=== PATIENT | male | born 1970 | race Caucasian/White ===

== ENCOUNTER 2019-01-30 12:05 | Emergency (ER) | payer MEDICAID ==
[~2019-01-30] VITALS: Ht 170.2 cm; Wt 61.2 kg
--- NOTE | 2019-01-30 14:11 | NUR ---
Patient discharged to home in stable conditon. Written and verbal after care instructions given. Patient verbalizes understanding of instructions.
== END 2019-01-30 14:13 | disposition home or self-care (01) ==
LOC: ER 12:09
DX: L03.113 Cellulitis of right upper limb (principal); I80.8 Phlebitis and thrombophlebitis of other sites; F17.200 Nicotine dependence, unspecified, uncomplicated
CPT/HCPCS: A4663

== ENCOUNTER 2020-01-28 18:36 | Emergency (ER) | payer MEDICAID ==
[~2020-01-28] VITALS: Ht 170.2 cm; Wt 61.2 kg
--- NOTE | 2020-01-28 18:48 | NUR ---
PT IS IN ROOM #2B. DR NGUYEN EVALUATED THE PT.
[2020-01-28] MEDS ORDERED: VANCOMYCIN IV 200 ML ONE (19:10)
[2020-01-28] MEDS ORDERED: CEFTRIAXONE /D5W 50ML IVPB **ER PYXIS IV ONE (19:11)
--- NOTE | 2020-01-28 19:18 | NUR ---
Called radiology to inform them of the [facility] order.
[2020-01-28] MEDS: VANCOMYCIN IV 1,000 MG in IV DEXTROSE 5% 250 ML IV ONE (19:45)
[2020-01-28 19:46] LABS: BASOPHILS % (AUTO) 0.2 % (0.0-2.0); CREATININE 0.9 mg/dL (0.6-1.3); EOSINOPHILS # (AUTO) 0.2 K/uL (0.0-0.7); EOSINOPHILS % (AUTO) 1.7 % (0.0-7.0); HEMATOCRIT 33.8 % (36.7-47.1); HEMOGLOBIN 11.1 g/dL (12.5-16.3); LYMPHOCYTES # (AUTO) 2.6 K/uL (20.0-40.0); LYMPHOCYTES % (AUTO) 19.8 % (20.5-51.5); MEAN CORPUSCULAR HEMOGLOBIN 27.3 uug (23.8-33.4); MEAN CORPUSCULAR HGB CONC 33 g/dL (32.5-36.3); MEAN CORPUSCULAR VOLUME 83.3 fL (73.0-96.2); MONOCYTES # (AUTO) 1.2 K/uL (2.0-10.0); MONOCYTES % (AUTO) 8.8 % (0.0-11.0); NEUTROPHILS # (AUTO) 9.2 K/uL (1.8-8.9); NEUTROPHILS % (AUTO) 69.5 % (38.5-71.5); PLATELET COUNT (AUTO) 407 K/uL (152-348); POTASSIUM 4.4 mmol/L (3.5-5.1); RED BLOOD CELL COUNT(AUTO) 4.06 MIL/uL (4.06-5.63); WHITE BLOOD COUNT (AUTO) 13.3 K/uL (3.6-10.2)
--- NOTE | 2020-01-28 19:47 | NUR ---
22g IV placed in left forearm, IV Vanco running at this time
[2020-01-28] MEDS: MUPIROCIN 2% OINT 22 GM TUBE TP ONE (19:50)
--- NOTE | 2020-01-28 19:51 | NUR ---
patient having doppler of right arm at this time
[2020-01-28 19:52] LABS: BILIRUBIN,DIRECT 0.1 mg/dL (0.0-0.2); BILIRUBIN,TOTAL 0.2 mg/dL (0.2-1.0); TOTAL PROTEIN, SERUM 7.9 g/dL (6.4-8.2)
[2020-01-28] MEDS ORDERED: MUPIROCIN 2% OINT 22 GM TUBE ONE (19:52)
[2020-01-28] MEDS: CEFTRIAXONE 1 G in IV DEXTROSE 5% 50 ML IV ONE (20:15)
--- NOTE | 2020-01-28 20:15 | NUR ---
Right Forearm wound dressing done at this time
--- NOTE | 2020-01-28 21:36 | NUR ---
Patient given written and verbal discharge instructions. Patient verbalizes understanding of instructions. Patient is ambulatory with steady gait. Refuses offer of custodial placement. Patient given list of available shelters in surrounding area. IV removed. Catheter intact and site benign. Pressure and 4x4 gauze applied to site. No bleeding noted. Patient ambulated out of ER with steady gait, no complaints of pain, no signs of distress noted.
[2020-01-28 22:16] VITALS: BP 135/80
== END 2020-01-28 21:40 | disposition home or self-care (01) ==
LOC: ER 18:39
DX: L03.113 Cellulitis of right upper limb (principal); I80.8 Phlebitis and thrombophlebitis of other sites; L98.491 Non-pressure chronic ulcer of skin of other sites limited to breakdown of skin; S51.831S Puncture wound without foreign body of right forearm, sequela; W26.8XXS Contact with other sharp object(s), not elsewhere classified, sequela; F11.10 Opioid abuse, uncomplicated
CPT/HCPCS: 36415; 73090; 80048; 80076; 85025; 93971; 96365; 96367; 99284; J0696; J3370; A4663

== ENCOUNTER 2022-07-12 20:42 | Inpatient (IN) | END 2022-07-15 18:25 | disposition left against medical advice (07) | DRG 720 | DX: A41.9 Sepsis, unspecified organism (principal); J96.01 Acute respiratory failure with hypoxia; G92.8 Other toxic encephalopathy; E44.0 Moderate protein-calorie malnutrition; J15.9 Unspecified bacterial pneumonia; F17.210 Nicotine dependence, cigarettes, uncomplicated; E87.6 Hypokalemia; F19.10 Other psychoactive substance abuse, uncomplicated; Z59.00 Homelessness unspecified; Z20.822 Contact with and (suspected) exposure to COVID-19; Z68.20 Body mass index [BMI] 20.0-20.9, adult ==

== ENCOUNTER 2023-04-28 21:04 | Emergency (ER) | payer OTHER ==
[~2023-04-28] VITALS: Ht 167.6 cm; Wt 61.2 kg
[2023-04-28] MEDS ORDERED: SULFAMETH/TRIMETH 800/160 MG TABLET PO ONE (21:45)
[2023-04-28] MEDS ORDERED: NEOMY/BACITRA/POLYMYXIN B OINT UD PACKET TP ONE ×2 (21:45→21:55)
[2023-04-28] MEDS ORDERED: SULFAMETH/TRIMETH 800/160 MG TABLET ONE (21:56)
[2023-04-28] MEDS ORDERED: SULF1TAB48 PO (21:59)
[2023-04-28 22:15] VITALS: BP 121/80; TEMP 98.5; O2SAT 99
== END 2023-04-28 22:15 | disposition home or self-care (01) ==
LOC: ER 21:11
DX: L02.512 Cutaneous abscess of left hand (principal); B95.8 Unspecified staphylococcus as the cause of diseases classified elsewhere; F17.210 Nicotine dependence, cigarettes, uncomplicated; Z59.00 Homelessness unspecified; Z79.899 Other long term (current) drug therapy
CPT/HCPCS: A4606; A4663

== ENCOUNTER 2024-06-24 17:13 | Inpatient (IN) | payer OTHER ==
[~2024-06-24] VITALS: Ht 170.2 cm; Wt 57.2 kg
[~2024-06-24 17:13] MED LIST: SULF1TAB48 PO
[2024-06-24] MEDS: ACETAMINOPHEN 500 MG TABLET PO ONE (19:00)
[2024-06-24] MEDS: IV NORMAL SALINE 500 ML IV ONE (19:00)
[2024-06-24 19:09] LABS: BASOPHILS % (AUTO) 0.1 % (0.0-2.0); HEMATOCRIT 37.2 % (36.7-47.1); HEMOGLOBIN 12.7 g/dL (12.5-16.3); LYMPHOCYTES # (AUTO) 1.4 K/uL (0.8-4.8); LYMPHOCYTES % (AUTO) 7.8 % (20.5-51.5); MEAN CORPUSCULAR HEMOGLOBIN 29.3 uug (23.8-33.4); MEAN CORPUSCULAR HGB CONC 34 g/dL (32.5-36.3); MEAN CORPUSCULAR VOLUME 85.7 fL (73.0-96.2); MONOCYTES # (AUTO) 1.4 K/uL (0.1-1.30); MONOCYTES % (AUTO) 7.7 % (0.0-11.0); NEUTROPHILS # (AUTO) 15.5 K/uL (1.8-8.9); NEUTROPHILS % (AUTO) 84.4 % (38.5-71.5); PLATELET COUNT (AUTO) 360 K/uL (152-348); RED BLOOD CELL COUNT(AUTO) 4.34 MIL/uL (4.06-5.63); WHITE BLOOD COUNT (AUTO) 18.3 K/uL (3.6-10.2)
[2024-06-24 19:15] LABS: DIFFERENTIAL COMMENT 1
[2024-06-24] MEDS ORDERED: ADENOSINE 6 MG/2 ML SYR IV ONE ×2 (19:15→19:26)
[2024-06-24 19:21] LABS: CALCIUM 8.7 mg/dL (8.5-10.1); CARBON DIOXIDE 26 mmol/L (21-32); CHLORIDE 94 mmol/L (98-107); CREATININE 1.1 mg/dL (0.6-1.3); GLUCOSE 143 mg/dL (74-106); POTASSIUM 4.9 mmol/L (3.5-5.1); SODIUM SERUM 129 mmol/L (136-145); UREA NITROGEN, BLOOD 28 mg/dL (7-18)
[2024-06-24] MEDS ORDERED: MIDAZOLAM HCL 2 MG/2 ML VIAL ONE (19:27)
[2024-06-24] MEDS ORDERED: DILTIAZEM HCL 25 MG IV ONE ×2 (19:30→19:41)
[2024-06-24] MEDS: DILTIAZEM HCL 25 MG IV IV ONE ×4 (19:32→20:40)
[2024-06-24 19:35] LABS: ALANINE AMINOTRANSFERASE 28 U/L (16-63); ALBUMIN 2.5 g/dL (3.4-5.0); ALKALINE PHOSPHATASE 89 U/L (50-136); ASPARTATE AMINOTRANSFERASE 16 U/L (15-37); BILIRUBIN,DIRECT 0.2 mg/dL (0.0-0.2); BILIRUBIN,TOTAL 0.5 mg/dL (0.2-1.0); NT-PRO BNP 3120 pg/mL (0-125); TOTAL PROTEIN, SERUM 7.5 g/dL (6.4-8.2)
[2024-06-24] MEDS: ADENOSINE 6 MG/2 ML SYR IV ONE (20:12)
[2024-06-24] MEDS ORDERED: CEFTRIAXONE /D5W 50ML IVPB **ER PYXIS IV ONE (20:26)
[2024-06-24] MEDS ORDERED: AZITHROMYCIN 500MG/ D5W 250ML IVPB **ER PYXIS ONLY IV ONE (20:27)
[2024-06-24] MEDS: CEFTRIAXONE 1 G in IV DEXTROSE 5% 50 ML IV ONE (20:32)
[2024-06-24] MEDS: AZITHROMYCIN IV 500 MG in IV DEXTROSE 5% 250 ML IV ONE (21:00)
[2024-06-24] MEDS ORDERED: DILTIAZEM HCL IV 125 MG in IV NORMAL SALINE 100 ML IV PRN ×2 (21:15→22:15)
[2024-06-24 22:00] VITALS: O2SAT 92
[2024-06-24] MEDS ORDERED: IPRATROPIUM BROMIDE 0.5 MG/2.5 ML NEBU ONE (22:00)
[2024-06-24] MEDS ORDERED: RACEPINEPHRINE HCL 2.25% 0.5 ML NEBU ONE (22:01)
[2024-06-24 22:11] VITALS: O2SAT 92
[2024-06-24] MEDS ORDERED: REMEDY ESSENTIAL ZINC PASTE 113 GM TP PRN (22:15)
[2024-06-24] MEDS ORDERED: ONDANSETRON 4 MG/2 ML VIAL IV PRN (22:15)
[2024-06-24 22:22] LABS: ABG BASE EXCESS -2.4 mmol/L (-2.0-3.0); ABG HCO3 20.9 mmol/L (21.0-28.0); ABG PCO2 31.9 mmHg (35.0-48.0); ABG PH 7.435 (7.350-7.450); ABG PO2 61.2 mmHg (83.0-108.0); ABG TOTAL HEMOGLOBIN 12.5 G/dL (13.5-17.5); AaDO2 92.5 mmHg; COHb 0.1 % (0.5-1.5); MetHb 0.1 % (0.0-1.5); O2Hb 91.4 % (94.0-98.0)
[2024-06-24] MEDS: BUDESONIDE 0.5 MG/2 ML NEBU NEB SCH (22:23)
[2024-06-24] MEDS: IPRATROPIUM BROMIDE 0.5 MG/2.5 ML NEBU NEB ONE (22:23)
[2024-06-25] VITALS (14 sets, daily range): BP systolic 103–125; BP diastolic 60–79; TEMP 97.5–98.9; O2SAT 84–98
[2024-06-25] MEDS: DOXYCYCLINE HYCLATE 100 MG TABLET PO SCH (00:35)
[2024-06-25] MEDS: ENOXAPARIN SODIUM 60 MG/0.6 ML DISP.SYRIN SQ SCH ×2 (00:37→08:57)
[2024-06-25] MEDS: IV NS 1000 ML 1,000 ML IV PRN (00:45)
[2024-06-25] MEDS: PANTOPRAZOLE SODIUM 40 MG TABLET.DR PO SCH (06:16)
[2024-06-25] MEDS ORDERED: ALBUTEROL SULFATE 1.25 MG/3 ML NEBU NEB PRN (08:45)
[2024-06-25] MEDS: AMIODARONE HCL IV 150 MG in IV DEXTROSE 5% 100 ML IV ONE (15:27)
[2024-06-25] MEDS: AMIODARONE HCL IV 450 MG in IV DEXTROSE 5% 250 ML IV PRN (15:33)
[2024-06-25] MEDS: FUROSEMIDE 40 MG/4 ML VIAL IV SCH (15:44)
[2024-06-25] MEDS: CEFTRIAXONE 2 G in IV DEXTROSE 5% 100 ML IV SCH (20:53)
[2024-06-26] VITALS (13 sets, daily range): BP systolic 103–156; BP diastolic 60–85; TEMP 97.5–99.5; O2SAT 86–100
[2024-06-26] MEDS: ACETAMINOPHEN 325 MG TABLET PO PRN (05:39)
[2024-06-26] MEDS: BUPRENORPHINE HCL 2 MG TAB.SUBL SL PRN (14:03)
[2024-06-26] MEDS: GUAIFENESIN/DEXTROMETHORPHAN 5 ML UDC PO PRN (17:13)
[2024-06-27 06:25] VITALS: BP 100/92; TEMP 98.1; O2SAT 93
[2024-06-27 09:20] VITALS: O2SAT 90
[2024-06-27 09:30] VITALS: O2SAT 96
[2024-06-27 10:06] VITALS: BP 137/80; TEMP 98.9; O2SAT 92
[2024-06-27] MEDS: ENOXAPARIN SODIUM 40 MG/0.4 ML DISP.SYRIN SQ SCH (10:06)
[2024-06-27] MEDS: methylPREDNISolone SOD SUCC 125 MG/2 ML VIAL IV SCH (12:58)
== END 2024-06-27 15:36 | disposition left against medical advice (07) | DRG 140 ==
LOC: ER 17:13 → TELE-TD3 23:27 → MEDSURG3 06-26 15:43
PROVIDERS: ADMIT Nurse Practitioner Family; ATTEND Internal Medicine
DX: J44.1 Chronic obstructive pulmonary disease with (acute) exacerbation (principal); J96.01 Acute respiratory failure with hypoxia; J15.69 Pneumonia due to other Gram-negative bacteria; E44.0 Moderate protein-calorie malnutrition; J81.1 Chronic pulmonary edema; I47.10 Supraventricular tachycardia, unspecified; E87.1 Hypo-osmolality and hyponatremia; E88.09 Other disorders of plasma-protein metabolism, not elsewhere classified; I48.0 Paroxysmal atrial fibrillation; J44.0 Chronic obstructive pulmonary disease with (acute) lower respiratory infection; Z59.00 Homelessness unspecified; F17.210 Nicotine dependence, cigarettes, uncomplicated; F15.10 Other stimulant abuse, uncomplicated; Z68.1 Body mass index [BMI] 19.9 or less, adult; F11.13 Opioid abuse with withdrawal; F19.10 Other psychoactive substance abuse, uncomplicated; Z53.29 Procedure and treatment not carried out because of patient's decision for other reasons
CPT/HCPCS: 36415; 36600; 71045; 83605; 83735; 84443; 84484; 85025; 87040; 93307; 94640; 94660; G0378; J0153; J0282; J0456; J0696; J1650; J1940; J2250; J2919; J3490; J3590; J7040; J7050